=== PATIENT | male | born 1965 | race African-American/Black ===

== ENCOUNTER 2016-07-02 16:05 | Inpatient (IN) | payer OTHER ==
[2016-07-02 18:14] VITALS: BMI 23.2
--- NOTE | 2016-07-02 21:05 | HP ---
CIWA Score - CIWA Score Nausea/Vomitin-Mild Nausea/No Vomiting Muscle Tremors: 4-Moderate,w/Arms Extend Anxiety: 4-Mod. Anxious/Guarded Agitation: 4-Moderately Restless Paroxysmal Sweats: 3 Orientation: 1-Uncertain about Date Tacttile Disturbances: 3-Moderate Itch/Numb/Burn Auditory Disturbances: 0-None Visual Disturbances: 0-None Headache: 0-None Present CIWA-Ar Total Score: 20 Admission ROS BHS - HPI Chief Complaint: C/O ALCOHOLISM AND WITHRAWAL SX'S. SEEKING DETOX TXMENT. Allergies/Adverse Reactions: Allergies Allergy/AdvReac Type Severity Reaction Status Date / Time apple AdvReac Verified 07/02/16 20:24 ibuprofen AdvReac Verified 07/02/16 20:24 History of Present Illness: 50 Y.O. MALE WITH ALCOHOLISM ADMITTED TO DETOX TXMENT. CLIENT IS KNOWN TO [facility]. LAST DETOX 12/03. DENIES ANY RECENT DETOX/REHAB SERVICES. REPORTS LONGEST CLEAN TIME 7 YEARS WHILE INCARCERATED. SELF REFERRED. Exam Limitations: No Limitations - Ebola screening Have you traveled outside of the country in the last 21 days: No Have you had contact with anyone from an Ebola affected area: No Have you been sick,other than usual withdrawal symptoms: No Do you have a fever: No - Review of Systems Constitutional: Chills, Loss of Appetite, Malaise, Night Sweats, Changes in sleep EENT: reports: Other (GLASSES) Respiratory: reports: Other (+TB [id number]) Cardiac: reports: No Symptoms Reported GI: reports: Nausea, Poor Appetite : reports: No Symptoms Reported Musculoskeletal: reports: Joint Pain Integumentary: reports: No Symptoms Reported Neuro: reports: Seizure Endocrine: reports: No Symptoms Reported Hematology: reports: No Symptoms Reported Psychiatric: reports: Anxious Other Systems: Reviewed and Negative Patient History - Patient Medical History Hx Anemia: No Hx Asthma: Yes Hx Chronic Obstructive Pulmonary Disease (COPD): Yes Hx Cancer: No Hx Cardiac Disorders: No Hx Congestive Heart Failure: No Hx Hypertension: No Hx Hypercholesterolemia: No Hx Pacemaker: No HX Cerebrovascular Accident: No Hx Seizures: No Hx Dementia: No Hx Diabetes: No Hx Gastrointestinal Disorders: No Hx Liver Disease: No Hx Genitourinary Disorders: No Hx Sexually Transmitted Disorders: No Hx Renal Disease (ESRD): No Hx Thyroid Disease: No Hx Human Immunodeficiency Virus (HIV): No Hx Hepatitis C: No Hx Depression: No Hx Suicide Attempt: No Hx Bipolar Disorder: Yes Hx Schizophrenia: No Other Medical History: H/O TB WITH TXMENT 1991 - Patient Surgical History Past Surgical History: No Hx Neurologic Surgery: No Hx Cataract Extraction: No Hx Cardiac Surgery: No Hx Lung Surgery: No Hx Breast Surgery: No Hx Breast Biopsy: No Hx Abdominal Surgery: No Hx Appendectomy: No Hx Cholecystectomy: No Hx Genitourinary Surgery: No Hx Section: No Hx Orthopedic Surgery: No Anesthesia Reaction: No - PPD History Previous Implant?: Yes Documented Results: Positive w/proof Implanted On Prior [facility] Admission?: No Results: CXR 11/2015 NEG PPD to be Administered?: No - Smoking Cessation Smoking history: Current every day smoker Have you smoked in the past 12 months: Yes Aproximately how many cigarettes per day: 4 Hx Chewing Tobacco Use: No Initiated information on smoking cessation: Yes 'Breaking Loose' booklet given: 07/02/16 - Substance & Tx. History Hx Alcohol Use: Yes Substance Use Type: Alcohol, Cocaine, Marijuana Hx Substance Use Treatment: Yes ([facility]) - Substances Abused Alcohol Route: Oral Frequency: Daily Amount used: LIQUOR- 1 PINT, BEER- 1 SIX PACK Age of first use: 16 Date of Last Use: 07/01/16 Crack Route: Smoking Amount used: 3 BAGS Age of first use: 19 Date of Last Use: 07/01/16 Family Disease History - Family Disease History Family Disease History: Diabetes: Grandparent, CA: Grandparent, Father Admission Physical Exam S - Vital Signs Vital Signs: Vital Signs - 24 hr 07/02/16 18:12 Temperature 98.7 F Pulse Rate 58 L Respiratory 20 Rate Blood Pressure 114/58 - Physical General Appearance: Yes: Appropriately Dressed, Tremorous, Anxious HEENTM: Yes: EOMI, Normocephalic, LILLIANA, Pharynx Normal, Other (POOR DENTITION) Respiratory: Yes: Chest Non-Tender, Lungs Clear, Normal Breath Sounds, No Respiratory Distress, No Accessory Muscle Use Neck: Yes: No masses,lesions,Nodules, Supple, Trachea in good position Breast: Yes: Breast Exam Deferred Cardiology: Yes: Regular Rhythm, Regular Rate, S1, S2 Abdominal: Yes: Normal Bowel Sounds, Non Tender, Flat, Soft Genitourinary: Yes: Within Normal Limits Back: Yes: Within Normal Limits Musculoskeletal: Yes: full range of Motion, Gait Steady Extremities: Yes: Normal Capillary Refill, Normal Range of Motion, Non-Tender, Tremors 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: 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 NML intact, Fully Oriented, Alert, Motor Strength 5/5 Integumentary: Yes: Normal Color, Warm Lymphatic: Yes: Within Normal Limits - Diagnostic (1) Alcohol dependence with uncomplicated withdrawal Current Visit: Yes Status: Chronic (2) Cocaine dependence Current Visit: No Status: Acute Qualifiers: Substance use status: uncomplicated Qualified Code(s): F14.20 - Cocaine dependence, uncomplicated (3) Marijuana dependence Current Visit: Yes Status: Chronic (4) Nicotine dependence Current Visit: Yes Status: Chronic Qualifiers: Nicotine product type: cigarettes Substance use status: uncomplicated Qualified Code(s): F17.210 - Nicotine dependence, cigarettes, uncomplicated (5) Gastrointestinal ulcerative mucositis Current Visit: Yes Status: Suspected Cleared for Admission [facility] - Detox or Rehab [facility] Level of Care: Medically Managed Detox Regimen/Protocol: Librium [facility] Breath Alcohol Content Breath Alcohol Content: 0 Urine Drug Screen - Results Drug Screen Negative: No Urine Drug Screen Results: THC-Marijuana, RAÚL-Cocaine
[2016-07-02] MEDS ORDERED: MAGNESIUM CITRATE 300 ML BOTTLE PO PRN (21:13)
[2016-07-02] MEDS ORDERED: LOPERAMIDE HCL 2 MG CAPSULE PO PRN (21:13)
[2016-07-02] MEDS ORDERED: chlordiazePOXIDE HCL 25 MG CAPSULE PO PRN (21:13)
[2016-07-02] MEDS ORDERED: MAGNESIUM HYDROX 2400MG/30ML ORAL SUSPENSION 30 ML CUP PO PRN (21:13)
[2016-07-02] MEDS ORDERED: P-EPHED 60MG/TRIPROLIDI 2.5MG TABLET PO PRN (21:13)
[2016-07-02] MEDS ORDERED: diphenhydrAMINE HCL 50 MG CAPSULE PO PRN (21:13)
[2016-07-02] MEDS ORDERED: guaiFENesin/D-METHORPHAN HB 10 ML UNIT-DOSE CUPS PO PRN (21:13)
[2016-07-02] MEDS ORDERED: MENTHOL/PHENOL 1 EACH UD MM PRN (21:13)
[2016-07-02] MEDS ORDERED: MAG HYDROX/AL HYDROX/SIMETH 30 ML UNIT-DOSE CUP PO PRN (21:13)
[2016-07-02] MEDS ORDERED: ACETAMINOPHEN 325 MG TABLET (FP) PO PRN (21:13)
[2016-07-02] MEDS ORDERED: hydrOXYzine PAMOATE 50 MG CAPSULE (FP) PO PRN (21:13)
[2016-07-02] MEDS ORDERED: ALBUTEROL SO4 6.7 GM HFA INHALER IH PRN (21:15)
[2016-07-02] MEDS: chlordiazePOXIDE HCL 25 MG CAPSULE PO SCH (22:06)
[2016-07-02] MEDS: THIAMINE HCL 100 MG TABLET (FP) PO SCH (22:06)
[2016-07-02] MEDS: NICOTINE 14 MG/24 HOURS TOPICAL PATCH TD SCH (22:07)
[2016-07-02] MEDS: BUDESONIDE/FORMETEROL FUMARATE 80/4.5 mcg INHALER IH SCH (22:09)
[2016-07-03 00:11] LABS: URINE APPEARANCE CLEAR; URINE BILIRUBIN NEGATIVE (NEGATIVE); URINE BLOOD NEGATIVE (NEGATIVE); URINE COLOR YELLOW; URINE GLUCOSE (UA) NEGATIVE (NEGATIVE); URINE KETONE NEGATIVE (NEGATIVE); URINE LEUK ESTERASE NEGATIVE (NEGATIVE); URINE NITRITE NEGATIVE (NEGATIVE); URINE PROTEIN NEGATIVE (NEGATIVE); URINE UROBILINOGEN NEGATIVE E.U./dl (0.2-1.0)
[2016-07-03] MEDS: chlordiazePOXIDE HCL 25 MG CAPSULE PO SCH ×4 (05:36→22:31)
[2016-07-03] MEDS ORDERED: PANTOPRAZOLE 40 MG TABLET (FP) PO SCH (10:00)
[2016-07-03 10:25] LABS: MCH 29.3 pg (25.7-33.7); MCHC 33.1 g/dl (32.0-35.9); MEAN CELL VOLUME 88.5 fl (80-96); MEAN PLT VOLUME 6.9 fl (7.5-11.1); PLATELET COUNT 261 K/MM3 (134-434); RDW 14.6 % (11.9-15.9); WHITE BLOOD COUNT 5.1 K/mm3 (4.0-10.0)
[2016-07-03] MEDS: PRENATAL VITAMINS W/ FOLIC ACID TABLET (FP) PO SCH (10:42)
[2016-07-03] MEDS: BUDESONIDE/FORMETEROL FUMARATE 80/4.5 mcg INHALER IH SCH ×2 (10:43→22:30)
[2016-07-03] MEDS: NICOTINE 14 MG/24 HOURS TOPICAL PATCH TD SCH (10:43)
[2016-07-03 11:07] LABS: ALBUMIN 3.2 g/dl (3.4-5.0); ALK PHOS 79 U/L (45-117); ANION GAP 9 (8-16); BILIRUBIN,TOTAL 0.6 mg/dL (0.2-1.0); CALCIUM 9.1 mg/dL (8.5-10.1); CO2 29 mmol/L (21-32); COCKROFT - GAULT 82.23; CREATININE 1.2 mg/dL (0.7-1.3); GLUCOSE,RANDOM 78 mg/dL (74-106); SGOT/AST 17 U/L (15-37); SGPT/ALT 22 U/L (12-78); TOT PROT 6.5 g/dl (6.4-8.2)
[2016-07-03] MEDS: RANITIDINE HCL 150 MG TABLET (FP) PO SCH ×2 (11:21→22:27)
--- NOTE | 2016-07-03 12:03 | CONSULT ---
[facility] Psychiatric Consult - Data Date of interview: 07/03/16 Admission source: [facility] Identifying data: Readmission to [facility] for this 50 y/o AA male seeking detox treatment on for alcohol,cocaine and marijuana dependence.Patient is ,a father of one,domiciled,unemployed and supported on Public Assistance.. Substance Abuse History: - Smoking Cessation. Smoking history: Current every day smoker. Have you smoked in the past 12 months: Yes. Aproximately how many cigarettes per day: 4. Hx Chewing Tobacco Use: No. Initiated information on smoking cessation: Yes. 'Breaking Loose' booklet given: 07/02/16. - Substance & Tx. History. Hx Alcohol Use: Yes. Substance Use Type: Alcohol, Cocaine, Marijuana. Hx Substance Use Treatment: Yes ([facility]). - Substances Abused. Alcohol. Route: Oral. Frequency: Daily. Amount used: LIQUOR- 1 PINT, BEER- 1 SIX PACK. Age of first use: 16. Date of Last Use: 07/01/16. Crack. Route : Smoking. Amount used: 3 BAGS. Age of first use: 19. Date of Last Use: 07/01. Confirmed by patient. Medical History: GERD and bronchial asthma. Psychiatric History: No reported history of psychiatric hospitalizations.Diagnosed with MDD and Bipolar Disorder (self-report).No recent history of psychiatric OPD care.Mr Olivera informs that he used to be on trazodone 100 mg/hs + seroquel 200 mg/hs.Patient wants to resume these medications in this hospital course.No history of suicide attempts. Physical/Sexual Abuse/Trauma History: Patient denies. Additional Comment: Urine Drug Screen Results: THC-Marijuana, RAÚL-Cocaine.Noted. Mental Status Exam - Mental Status Exam Alert and Oriented to: Time, Place, Person Cognitive Function: Good Patient Appearance: Well Groomed Mood: Hopeful, Euthymic Affect: Appropriate, Normal Range Patient Behavior: Appropriate, Cooperative (friendly) Speech Pattern: Clear, Appropriate Voice Loudness: Normal Thought Process: Goal Oriented Thought Disorder: Not Present Hallucinations: Denies Suicidal Ideation: Denies Homicidal Ideation: Denies Insight/Judgement: Poor Sleep: Poorly, Difficulty falling asleep Appetite: Good Muscle strength/Tone: Normal Gait/Station: Normal Psychiatric Findings - Problem List ([place] 1, 2,3) (1) Alcohol dependence with uncomplicated withdrawal Current Visit: Yes Status: Acute (2) Marijuana dependence Current Visit: Yes Status: Acute (3) Cocaine dependence Current Visit: Yes Status: Acute Qualifiers: Substance use status: uncomplicated Qualified Code(s): F14.20 - Cocaine dependence, uncomplicated (4) Nicotine dependence Current Visit: Yes Status: Acute Qualifiers: Nicotine product type: cigarettes Substance use status: uncomplicated Qualified Code(s): F17.210 - Nicotine dependence, cigarettes, uncomplicated (5) Substance induced mood disorder Current Visit: Yes Status: Acute (6) Gastrointestinal ulcerative mucositis Current Visit: Yes Status: Suspected (7) Insomnia Current Visit: Yes Status: Acute - Initial Treatment Plan Initial Treatment Plan: Psychoeducation.Detoxification in progress.Medications : seroquel 200 mg po hs + trazodone 50 mg po hs.Side effects/benefits discussed with patient.Made aware of the potential for priapism (trazodone).Patient agrees with this careplan.Observation.
--- NOTE | 2016-07-03 12:32 | PN ---
[facility] CIWA - CIWA Score Nausea/Vomitin-No Nausea/No Vomiting Muscle Tremors: 4-Moderate,w/Arms Extend Anxiety: 4-Mod. Anxious/Guarded Agitation: 4-Moderately Restless Paroxysmal Sweats: 1-Minimal Palms Moist Orientation: 0-Oriented Tacttile Disturbances: 3-Moderate Itch/Numb/Burn Auditory Disturbances: 0-None Visual Disturbances: 0-None Headache: 0-None Present CIWA-Ar Total Score: 16 BHS Progress Note (SOAP) Subjective: ANXIETY,IRRITABILITY,SWEATS. Objective: 07/03/16 12:31 Vital Signs Temperature 98.2 F 07/03/16 10:32 Pulse Rate 57 L 07/03/16 10:32 Respiratory Rate 18 07/03/16 10:32 Blood Pressure 122/74 07/03/16 10:32 O2 Sat by Pulse Oximetry (%) Laboratory Last Values WBC 5.1 K/mm3 (4.0-10.0) 07/03/16 07:00 RBC 4.46 M/mm3 (4.00-5.60) 07/03/16 07:00 Hgb 13.1 GM/dL (11.7-16.9) 07/03/16 07:00 Hct 39.5 % (35.4-49) 07/03/16 07:00 MCV 88.5 fl (80-96) 07/03/16 07:00 MCHC 33.1 g/dl (32.0-35.9) 07/03/16 07:00 RDW 14.6 % (11.9-15.9) 07/03/16 07:00 Plt Count 261 K/MM3 (134-434) D 07/03/16 07:00 MPV 6.9 fl (7.5-11.1) L 07/03/16 07:00 Sodium 141 mmol/L (136-145) 07/03/16 07:00 Potassium 4.2 mmol/L (3.5-5.1) 07/03/16 07:00 Chloride 103 mmol/L (98-107) 07/03/16 07:00 Carbon Dioxide 29 mmol/L (21-32) 07/03/16 07:00 Anion Gap 9 (8-16) 07/03/16 07:00 BUN 13 mg/dL (7-18) D 07/03/16 07:00 Creatinine 1.2 mg/dL (0.7-1.3) 07/03/16 07:00 Creat Clearance w eGFR > 60 (>60) 07/03/16 07:00 Random Glucose 78 mg/dL (74-106) 07/03/16 07:00 Calcium 9.1 mg/dL (8.5-10.1) 07/03/16 07:00 Total Bilirubin 0.6 mg/dL (0.2-1.0) D 07/03/16 07:00 AST 17 U/L (15-37) 07/03/16 07:00 ALT 22 U/L (12-78) D 07/03/16 07:00 Alkaline Phosphatase 79 U/L (45-117) 07/03/16 07:00 Total Protein 6.5 g/dl (6.4-8.2) 07/03/16 07:00 Albumin 3.2 g/dl (3.4-5.0) L 07/03/16 07:00 Urine Color Yellow 07/02/16 00:00 Urine Appearance Clear 07/02/16 00:00 Urine pH 6.0 (5.0-8.0) 07/02/16 00:00 Ur Specific [place] 1.015 (1.005-1.025) 07/02/16 00:00 Urine Protein Negative (NEGATIVE) 07/02/16 00:00 Urine Glucose (UA) Negative (NEGATIVE) 07/02/16 00:00 Urine Ketones Negative (NEGATIVE) 07/02/16 00:00 Urine Blood Negative (NEGATIVE) 07/02/16 00:00 Urine Nitrite Negative (NEGATIVE) 07/02/16 00:00 Urine Bilirubin Negative (NEGATIVE) 07/02/16 00:00 Urine Urobilinogen Negative E.U./dl (0.2-1.0) 07/02/16 00:00 Ur Leukocyte Esterase Negative (NEGATIVE) 07/02/16 00:00 Assessment: 07/03/16 12:31 WITHDRAWAL SX Plan: CONTINUE DETOX
--- NOTE | 2016-07-03 17:20 | EKG ---
Test Reason : Blood Pressure : / mmHG Vent. Rate : 057 BPM Atrial Rate : 057 BPM P-R Int : 156 ms QRS Dur : 108 ms QT Int : 404 ms P-R-T Axes : 075 067 057 degrees QTc Int : 393 ms SINUS BRADYCARDIA OTHERWISE NORMAL ECG NO PREVIOUS ECGS AVAILABLE Confirmed by ISMAEL HAMILTON, ALISTAIR ([id number]) on 07/03/2016 5:20:27 PM Referred By: Cory Weiss Confirmed By:ALISTAIR GUEVARA MD
[2016-07-03] MEDS: QUEtiapine FUMARATE 200 MG TABLET PO SCH (22:27)
[2016-07-03] MEDS: THIAMINE HCL 100 MG TABLET (FP) PO SCH (22:27)
[2016-07-03] MEDS: traZODone HCL 50 MG TABLET (FP) PO SCH (22:27)
[2016-07-04] MEDS: chlordiazePOXIDE HCL 25 MG CAPSULE PO SCH ×3 (06:11→17:29)
[2016-07-04] MEDS: NICOTINE 14 MG/24 HOURS TOPICAL PATCH TD SCH (10:36)
[2016-07-04] MEDS: PRENATAL VITAMINS W/ FOLIC ACID TABLET (FP) PO SCH (10:36)
[2016-07-04] MEDS: BUDESONIDE/FORMETEROL FUMARATE 80/4.5 mcg INHALER IH SCH ×2 (10:36→22:53)
[2016-07-04] MEDS: PANTOPRAZOLE 40 MG TABLET (FP) PO SCH (10:36)
[2016-07-04] MEDS: NICOTINE POLACRILEX 2 MG GUM BUC PRN ×3 (12:07→22:28)
--- NOTE | 2016-07-04 15:43 | PN ---
[facility] CIWA - CIWA Score Nausea/Vomitin Muscle Tremors: 4-Moderate,w/Arms Extend Anxiety: 3 Agitation: 2 Paroxysmal Sweats: 3 Orientation: 0-Oriented Tacttile Disturbances: 0-None Auditory Disturbances: 2-Mild Harshness/Frighten Visual Disturbances: 0-None Headache: 0-None Present CIWA-Ar Total Score: 16 S Progress Note (SOAP) Subjective: Tremors, Stomach Cramping, Sweating. Objective: PT. A & O X 3, OBSERVED AMBULATING ON UNIT. 07/04/16 15:41 Vital Signs Temperature 97.1 F L 07/04/16 13:29 Pulse Rate 55 L 07/04/16 13:29 Respiratory Rate 18 07/04/16 13:29 Blood Pressure 105/66 07/04/16 13:29 O2 Sat by Pulse Oximetry (%) Laboratory Last Values WBC 5.1 K/mm3 (4.0-10.0) 07/03/16 07:00 RBC 4.46 M/mm3 (4.00-5.60) 07/03/16 07:00 Hgb 13.1 GM/dL (11.7-16.9) 07/03/16 07:00 Hct 39.5 % (35.4-49) 07/03/16 07:00 MCV 88.5 fl (80-96) 07/03/16 07:00 MCHC 33.1 g/dl (32.0-35.9) 07/03/16 07:00 RDW 14.6 % (11.9-15.9) 07/03/16 07:00 Plt Count 261 K/MM3 (134-434) D 07/03/16 07:00 MPV 6.9 fl (7.5-11.1) L 07/03/16 07:00 Sodium 141 mmol/L (136-145) 07/03/16 07:00 Potassium 4.2 mmol/L (3.5-5.1) 07/03/16 07:00 Chloride 103 mmol/L (98-107) 07/03/16 07:00 Carbon Dioxide 29 mmol/L (21-32) 07/03/16 07:00 Anion Gap 9 (8-16) 07/03/16 07:00 BUN 13 mg/dL (7-18) D 07/03/16 07:00 Creatinine 1.2 mg/dL (0.7-1.3) 07/03/16 07:00 Creat Clearance w eGFR > 60 (>60) 07/03/16 07:00 Random Glucose 78 mg/dL (74-106) 07/03/16 07:00 Calcium 9.1 mg/dL (8.5-10.1) 07/03/16 07:00 Total Bilirubin 0.6 mg/dL (0.2-1.0) D 07/03/16 07:00 AST 17 U/L (15-37) 07/03/16 07:00 ALT 22 U/L (12-78) D 07/03/16 07:00 Alkaline Phosphatase 79 U/L (45-117) 07/03/16 07:00 Total Protein 6.5 g/dl (6.4-8.2) 07/03/16 07:00 Albumin 3.2 g/dl (3.4-5.0) L 07/03/16 07:00 Urine Color Yellow 07/02/16 00:00 Urine Appearance Clear 07/02/16 00:00 Urine pH 6.0 (5.0-8.0) 07/02/16 00:00 Ur Specific [place] 1.015 (1.005-1.025) 07/02/16 00:00 Urine Protein Negative (NEGATIVE) 07/02/16 00:00 Urine Glucose (UA) Negative (NEGATIVE) 07/02/16 00:00 Urine Ketones Negative (NEGATIVE) 07/02/16 00:00 Urine Blood Negative (NEGATIVE) 07/02/16 00:00 Urine Nitrite Negative (NEGATIVE) 07/02/16 00:00 Urine Bilirubin Negative (NEGATIVE) 07/02/16 00:00 Urine Urobilinogen Negative E.U./dl (0.2-1.0) 07/02/16 00:00 Ur Leukocyte Esterase Negative (NEGATIVE) 07/02/16 00:00 RPR Titer Nonreactive (NONREACTIVE) 07/03/16 07:00 Hepatitis C Antibody 0.1 s/co ratio (0.0-0.9) 07/02/16 07:00 LABS NOTED. Assessment: 07/04/16 15:42 WITHDRAWAL SYMPTOMS. Plan: CONTINUE DETOX. ADVISED PATIENT TO FOLLOW-UP WITH SHIRT SEWER AFTER DISCHARGE FROM DETOX FOR GENERAL MEDICAL ASSESSMENT.
[2016-07-04] MEDS: THIAMINE HCL 100 MG TABLET (FP) PO SCH (22:24)
[2016-07-04] MEDS: chlordiazePOXIDE 5 MG CAPSULE PO SCH (22:24)
[2016-07-04] MEDS: traZODone HCL 50 MG TABLET (FP) PO SCH (22:25)
[2016-07-04] MEDS: QUEtiapine FUMARATE 200 MG TABLET PO SCH ×2 (22:27→22:54)
[2016-07-05] MEDS: chlordiazePOXIDE 5 MG CAPSULE PO SCH ×2 (05:57→10:29)
[2016-07-05] MEDS: NICOTINE POLACRILEX 2 MG GUM BUC PRN ×2 (06:00→10:32)
[2016-07-05 09:30] VITALS: BP 114/79; PULSE 75; TEMP 96.9
[2016-07-05] MEDS: NICOTINE 14 MG/24 HOURS TOPICAL PATCH TD SCH (10:29)
[2016-07-05] MEDS: PRENATAL VITAMINS W/ FOLIC ACID TABLET (FP) PO SCH (10:29)
[2016-07-05] MEDS: BUDESONIDE/FORMETEROL FUMARATE 80/4.5 mcg INHALER IH SCH (10:29)
[2016-07-05] MEDS: PANTOPRAZOLE 40 MG TABLET (FP) PO SCH (10:29)
--- NOTE | 2016-07-05 12:30 | DS ---
[facility] Detox Discharge Summary Admission Date: 07/02/16 Discharge Date: 07/05/16 - History Present History: Alcohol Dependence, Cannabis Dependence, Cocaine Dependence Additional Comments: ADVISED PATIENT TO FOLLOW-UP WITH TORCH OPERATOR AFTER DISCHARGE FROM DETOX FOR GENERAL MEDICAL ASSESSMENT AND FOR ABNORMAL DETOX ADMISSION LAB VALUES. Pertinent Past History: Asthma, Bipolar disorder, COPD, History of Positive PPD (Treated). - Physical Exam Results Vital Signs: Vital Signs Temperature 96.9 F L 07/05/16 09:29 Pulse Rate 75 07/05/16 09:29 Respiratory Rate 18 07/05/16 09:29 Blood Pressure 114/79 07/05/16 09:29 O2 Sat by Pulse Oximetry (%) Pertinent Admission Physical Exam Findings: WITHDRAWAL SYMPTOMS. Laboratory Last Values WBC 5.1 K/mm3 (4.0-10.0) 07/03/16 07:00 RBC 4.46 M/mm3 (4.00-5.60) 07/03/16 07:00 Hgb 13.1 GM/dL (11.7-16.9) 07/03/16 07:00 Hct 39.5 % (35.4-49) 07/03/16 07:00 MCV 88.5 fl (80-96) 07/03/16 07:00 MCHC 33.1 g/dl (32.0-35.9) 07/03/16 07:00 RDW 14.6 % (11.9-15.9) 07/03/16 07:00 Plt Count 261 K/MM3 (134-434) D 07/03/16 07:00 MPV 6.9 fl (7.5-11.1) L 07/03/16 07:00 Sodium 141 mmol/L (136-145) 07/03/16 07:00 Potassium 4.2 mmol/L (3.5-5.1) 07/03/16 07:00 Chloride 103 mmol/L (98-107) 07/03/16 07:00 Carbon Dioxide 29 mmol/L (21-32) 07/03/16 07:00 Anion Gap 9 (8-16) 07/03/16 07:00 BUN 13 mg/dL (7-18) D 07/03/16 07:00 Creatinine 1.2 mg/dL (0.7-1.3) 07/03/16 07:00 Creat Clearance w eGFR > 60 (>60) 07/03/16 07:00 Random Glucose 78 mg/dL (74-106) 07/03/16 07:00 Calcium 9.1 mg/dL (8.5-10.1) 07/03/16 07:00 Total Bilirubin 0.6 mg/dL (0.2-1.0) D 07/03/16 07:00 AST 17 U/L (15-37) 07/03/16 07:00 ALT 22 U/L (12-78) D 07/03/16 07:00 Alkaline Phosphatase 79 U/L (45-117) 07/03/16 07:00 Total Protein 6.5 g/dl (6.4-8.2) 07/03/16 07:00 Albumin 3.2 g/dl (3.4-5.0) L 07/03/16 07:00 Urine Color Yellow 07/02/16 00:00 Urine Appearance Clear 07/02/16 00:00 Urine pH 6.0 (5.0-8.0) 07/02/16 00:00 Ur Specific [place] 1.015 (1.005-1.025) 07/02/16 00:00 Urine Protein Negative (NEGATIVE) 07/02/16 00:00 Urine Glucose (UA) Negative (NEGATIVE) 07/02/16 00:00 Urine Ketones Negative (NEGATIVE) 07/02/16 00:00 Urine Blood Negative (NEGATIVE) 07/02/16 00:00 Urine Nitrite Negative (NEGATIVE) 07/02/16 00:00 Urine Bilirubin Negative (NEGATIVE) 07/02/16 00:00 Urine Urobilinogen Negative E.U./dl (0.2-1.0) 07/02/16 00:00 Ur Leukocyte Esterase Negative (NEGATIVE) 07/02/16 00:00 RPR Titer Nonreactive (NONREACTIVE) 07/03/16 07:00 Hepatitis C Antibody 0.1 s/co ratio (0.0-0.9) 07/02/16 07:00 LABS NOTED. - Treatment Hospital Course: Detox Protocol Followed, Detoxed Safely, Responded well, Discharged Condition Good, Rehab Referral Accepted Patient has Accepted a Rehab Referral to: YES - [facility]. - Medication Discharge Medications: Ambulatory Orders Ranitidine [Zantac -] 150 mg PO DAILY 11/22/15 Albuterol Sulfate Inhaler - [Ventolin Hfa Inhaler -] 2 inh PO Q6H 11/23/15 Budesonide/Formeterol Fumarate [SYMBICORT 80/4.5mcg -] 1 inh PO BID 11/23/15 Quetiapine Fumarate [Seroquel -] 200 mg PO HS #30 tab 11/25/15 Trazodone HCl [Desyrel -] 50 mg PO HS #30 tablet 11/25/15 Quetiapine Fumarate [Seroquel -] 200 mg PO HS #30 tab 07/03/16 Trazodone HCl [Desyrel -] 50 mg PO HS #30 tablet 07/03/16 - Diagnosis (1) Alcohol dependence with uncomplicated withdrawal Current Visit: Yes Status: Acute (2) Cocaine dependence Current Visit: Yes Status: Acute Qualifiers: Substance use status: uncomplicated Qualified Code(s): F14.20 - Cocaine dependence, uncomplicated (3) Insomnia Current Visit: Yes Status: Chronic Qualifiers: Insomnia type: unspecified Qualified Code(s): G47.00 - Insomnia, unspecified (4) Marijuana dependence Current Visit: Yes Status: Acute (5) Nicotine dependence Current Visit: Yes Status: Chronic Qualifiers: Nicotine product type: cigarettes Substance use status: uncomplicated Qualified Code(s): F17.210 - Nicotine dependence, cigarettes, uncomplicated (6) Substance induced mood disorder Current Visit: Yes Status: Acute (7) Gastrointestinal ulcerative mucositis Current Visit: Yes Status: Suspected - AMA Did Patient Leave Against Medical Advice: No
[2016-07-05] MEDS ORDERED: chlordiazePOXIDE HCL 10 MG CAPSULE PO SCH (23:00)
== END 2016-07-05 12:15 | disposition other institution (70) | DRG 774 ==
LOC: YASAS 16:05 → Y3N 20:17
PROVIDERS: ADMIT Internal Medicine; ATTEND Internal Medicine
PROC: HZ2ZZZZ Detoxification Services for Substance Abuse Treatment (ICD-10-PCS; principal; 2016-07-05)
DX: F10.230 Alcohol dependence with withdrawal, uncomplicated (principal); F14.20 Cocaine dependence, uncomplicated; F12.20 Cannabis dependence, uncomplicated; F19.24 Other psychoactive substance dependence with psychoactive substance-induced mood disorder; F17.210 Nicotine dependence, cigarettes, uncomplicated; F31.9 Bipolar disorder, unspecified; G47.00 Insomnia, unspecified; K92.81 Gastrointestinal mucositis (ulcerative); J44.9 Chronic obstructive pulmonary disease, unspecified; J45.909 Unspecified asthma, uncomplicated; R76.11 Nonspecific reaction to tuberculin skin test without active tuberculosis
CPT/HCPCS: 36415; 80053; 81003; 85027; 86593; 86803; 93005; 93010

== ENCOUNTER 2016-07-05 12:24 | Inpatient (IN) | payer OTHER ==
--- NOTE | 2016-07-05 13:49 | HP ---
Psychiatrist Admission - Data Date of interview: 07/05/16 Admission source: [facility] Identifying data: This is the first [facility] inpatient rehabilitation admission for this 50 y/o AA male who is ,a father of one,domiciled,unemployed and supported on Public Assistance.. Medical History: GERD, Asthma. Smokes cigarettes 4 a day. Psychiatric History: Patient reports has bipolar/depression, no psychiatric hospitalizations, states his primary physician at [facility] gives him scripts for Seroquel 200 mg po hs and Trazodone 100 mg po hs, he was seen at [facility] by and continued Seroquel 200 mg po hs and Trazodone decreased to 50 mg, patient reports he wants to get off psychotropics and asked to decrease Seroquel to 150 mg po hs. Physical/Sexual Abuse/Trauma History: denies history of sexual, physical and verbal abuse. Allergies/Adverse Reactions: Allergies Allergy/AdvReac Type Severity Reaction Status Date / Time apple AdvReac Verified 07/02/16 20:24 ibuprofen AdvReac Verified 07/02/16 20:24 Date of last physical exam: 07/02/16 Concur with the findings of this exam: Yes - Substance Abuse/Tx History Hx Alcohol Use: Yes (melodie daily use) Hx Substance Use: Yes Substance Use Type: Cocaine (daily use), Marijuana (daily use) Hx Substance Use Treatment: Yes (patient reports this is his first rehab.) - Admission Criteria Previous failed treatment: Yes Poor recovery environment: Yes Comorbidities: Yes Lacks judgement: Yes Mental Status Exam - Mental Status Exam Alert and Oriented to: Time, Place, Person Cognitive Function: Good Patient Appearance: Well Groomed Mood: Hopeful, Euthymic Affect: Appropriate, Mood Congruent Patient Behavior: Appropriate, Cooperative Speech Pattern: Clear, Appropriate Voice Loudness: Normal Thought Process: Intact, Goal Oriented Thought Disorder: Not Present Hallucinations: Denies Suicidal Ideation: Denies Homicidal Ideation: Denies Insight/Judgement: Fair Sleep: Fair Appetite: Fair Muscle strength/Tone: Normal Gait/Station: Normal Psychiatric Findings - Problem List ([facility] 1, 2,3) (1) Cocaine dependence Current Visit: No Status: Acute Qualifiers: Substance use status: uncomplicated Qualified Code(s): F14.20 - Cocaine dependence, uncomplicated (2) Marijuana dependence Current Visit: No Status: Acute (3) Substance induced mood disorder Current Visit: No Status: Acute (4) Nicotine dependence Current Visit: No Status: Chronic Qualifiers: Nicotine product type: cigarettes Substance use status: uncomplicated Qualified Code(s): F17.210 - Nicotine dependence, cigarettes, uncomplicated (5) Alcohol dependence Current Visit: No Status: Acute Qualifiers: Substance use status: uncomplicated Qualified Code(s): F10.20 - Alcohol dependence, uncomplicated - Initial Treatment Plan Initial Treatment Plan: will continue Trazodone 50 mg and decrease Seroquel 150 mg po hs, monitor progress as neeed.
[2016-07-05] MEDS ORDERED: diphenhydrAMINE HCL 50 MG CAPSULE PO PRN (14:23)
[2016-07-05] MEDS ORDERED: MAGNESIUM CITRATE 300 ML BOTTLE PO PRN (14:23)
[2016-07-05] MEDS ORDERED: MENTHOL/PHENOL 1 EACH UD MM PRN (14:23)
[2016-07-05] MEDS ORDERED: IBUPROFEN 400 MG TABLET (FP) PO PRN (14:23)
[2016-07-05] MEDS ORDERED: MAG HYDROX/AL HYDROX/SIMETH 30 ML UNIT-DOSE CUP PO PRN (14:23)
[2016-07-05] MEDS ORDERED: ACETAMINOPHEN 325 MG TABLET (FP) PO PRN (14:23)
[2016-07-05] MEDS ORDERED: P-EPHED 60MG/TRIPROLIDI 2.5MG TABLET PO PRN (14:23)
[2016-07-05] MEDS ORDERED: hydrOXYzine PAMOATE 50 MG CAPSULE (FP) PO PRN (14:23)
[2016-07-05] MEDS ORDERED: guaiFENesin/D-METHORPHAN HB 10 ML UNIT-DOSE CUPS PO PRN (14:23)
[2016-07-05] MEDS ORDERED: LOPERAMIDE HCL 2 MG CAPSULE PO PRN (14:23)
[2016-07-05] MEDS ORDERED: MAGNESIUM HYDROX 2400MG/30ML ORAL SUSPENSION 30 ML CUP PO PRN (14:23)
--- NOTE | 2016-07-05 14:27 | HP ---
[facility] Re[facility] Assess/Revision - Admission History Ad[facility] to [facility] Date of Admission to Rehab: 07/05/16 - Findings Detox History & Physical reviewed: Yes Concur with findings: Yes Comments/Additional Findings: FOR REHAB PROTOCOL
[2016-07-05] MEDS: QUEtiapine FUMARATE 50 MG TABLET PO SCH (21:31)
[2016-07-05] MEDS: THIAMINE HCL 100 MG TABLET (FP) PO SCH (21:31)
[2016-07-05] MEDS: traZODone HCL 50 MG TABLET (FP) PO SCH (21:31)
[2016-07-06] MEDS: PRENATAL VITAMINS W/ FOLIC ACID TABLET (FP) PO SCH (10:09)
[2016-07-06] MEDS: NICOTINE POLACRILEX 2 MG GUM BUC PRN ×2 (10:10→21:35)
[2016-07-06] MEDS ORDERED: PNEUMOCOCCAL 23 VACCINE 0.5 ML VIAL IM ONE (12:00)
[2016-07-06] MEDS ORDERED: PNEUMOC 13-VAL CONJ-DIP CRM/PF 0.5 ML DISP.SYRIN IM ONE (13:25)
[2016-07-06] MEDS: QUEtiapine FUMARATE 50 MG TABLET PO SCH (21:33)
[2016-07-06] MEDS: traZODone HCL 50 MG TABLET (FP) PO SCH (21:33)
[2016-07-06] MEDS: THIAMINE HCL 100 MG TABLET (FP) PO SCH (21:33)
[2016-07-07] MEDS: NICOTINE POLACRILEX 2 MG GUM BUC PRN ×3 (06:10→21:39)
[2016-07-07] MEDS: PRENATAL VITAMINS W/ FOLIC ACID TABLET (FP) PO SCH (10:04)
[2016-07-07] MEDS: THIAMINE HCL 100 MG TABLET (FP) PO SCH (21:38)
[2016-07-07] MEDS: traZODone HCL 50 MG TABLET (FP) PO SCH (21:38)
[2016-07-07] MEDS: QUEtiapine FUMARATE 50 MG TABLET PO SCH (21:38)
[2016-07-08 07:08] VITALS: BP 112/72; PULSE 66; TEMP 98.3
[2016-07-08] MEDS: PRENATAL VITAMINS W/ FOLIC ACID TABLET (FP) PO SCH (10:14)
[2016-07-08] MEDS: NICOTINE POLACRILEX 2 MG GUM BUC PRN (10:15)
--- NOTE | 2016-07-08 11:03 | PN ---
[facility] Progress Note Note: Attending Note: Called by nurse to inform that patient has made the decision to leave the program against medical advice. He did not want sripts for his medications because he has enough supply to his next psychiatric appointment
== END 2016-07-08 11:00 | disposition left against medical advice (07) | DRG 770 ==
LOC: YASAS 12:24 → Y5N 12:25
PROVIDERS: ADMIT Psychiatry & Neurology Psychiatry; ATTEND Psychiatry & Neurology Psychiatry
PROC: HZ42ZZZ Group Counseling for Substance Abuse Treatment, Cognitive-Behavioral (ICD-10-PCS; principal; 2016-07-05)
DX: F10.20 Alcohol dependence, uncomplicated (principal); F14.20 Cocaine dependence, uncomplicated; F12.20 Cannabis dependence, uncomplicated; F17.210 Nicotine dependence, cigarettes, uncomplicated; F19.24 Other psychoactive substance dependence with psychoactive substance-induced mood disorder; K21.9 Gastro-esophageal reflux disease without esophagitis; J45.909 Unspecified asthma, uncomplicated
CPT/HCPCS: 90732; G0009